=== PATIENT | female | born 1995 | race Hispanic/Latino ===

== ENCOUNTER 2024-11-21 22:20 | Emergency (ER) | payer SELFPAY ==
[~2024-11-21] VITALS: Ht 160 cm; Wt 62.4 kg
--- NOTE | 2024-11-21 22:29 | ERN ---
ED Note History of Present Illness Stated Complaint: N/V/D, ABD PAIN Chief Complaint: Nausea,Vomiting,Diarrhea Time Seen by MD: 22:26 Dictation: PATIENT IS A 29-YEAR-OLD FEMALE HERE WITH COMPLAINTS OF EPIGASTRIC PAIN WITH NAUSEA VOMITING ONSET WAS YESTERDAY. SHE STATES HER LAST FOOD INTAKE WAS YESTERDAY SHE STATES THIS THIS AFTERNOON SHE GOT UP AND TRIED TO EAT AT 17:30, SHE THREW UP. NO FEVER NO CHILLS NO CHEST PAIN NO BACK PAIN. 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 Allergies: Coded Allergies: No Known Drug Allergies (Unverified Allergy, Unknown, 11/21/24) Past Medical History Past Medical History: No Pertinent History Surgical History: Other Surgical History Other: GALLBLADDER "STONES" 2017 History: Not Applicable LMP: Oct 25, 2024 RN Note Reviewed/Agreed w/PFSH: Yes Review of System Dictation CONSTITUTIONAL: NEGATIVE EXCEPT FOR HPI HEAD/FACE: NEGATIVE EXCEPT FOR HPI EENT: NEGATIVE EXCEPT FOR HPI RESPIRATORY: NEGATIVE EXCEPT FOR HPI GASTROINTESTINAL/ABDOMINAL: NEGATIVE EXCEPT FOR HPI EPIGASTRIC PAIN WITH NAUSEA VOMITING GENITOURINARY: NEGATIVE EXCEPT FOR HPI MUSCULOSKELETAL: NEGATIVE EXCEPT FOR HPI INTEGUMENTARY: NEGATIVE EXCEPT FOR HPI NEUROLOGICAL/PSYCH: NEGATIVE EXCEPT FOR HPI HEMATOLOGIC/LYMPHATIC: NEGATIVE EXCEPT FOR HPI ALL SYSTEMS NEGATIVE, EXCEPT NOTED ABOVE. 13 POINT REVIEW OF SYSTEMS ASSESSED AND ALL NEGATIVE EXCEPT FOR ABOVE. Initial Vital Sign VS Vital Signs Date Time Temp Pulse Resp B/P (MAP) Pulse Ox O2 Delivery O2 Flow Rate FiO2 11/21/24 22:21 99.3 121 20 127/79 100 Room Air 0 11/21/24 23:45 21 Physical Exam Dictation VITAL SIGNS REVIEWED GENERAL APPEARANCE: ALERT, ORIENTED X 3, MILD ACUTE DISTRESS, WELL DEVELOPED, NOURISHED. PATIENT STATES NO PAIN UNTIL I FEEL LIKE AND WENT TO VOMIT. HEAD AND FACE: NON-TRAUMATIC. EYES: PERRL, PINK CONJUNCTIVAS, EYELID NO TRAUMA, ANTERIOR CHAMBER WITH ARCUS SENILIS. EARS: PINNAS INTACT AND NO SIGNS OF TRAUMA OR ERYTHEMA EAR CANALS CLEAR AND NO DISCHARGE TM NO ERYTHEMA NOSE: NO DISCHARGE, NO BLEEDING. OROPHARYNX: MOUTH NORMAL, TONGUE PINK, PHARYNX CLEAR,NO ERYTHEMA, TONSILS NO EXUDATES, NO ABSCESSES NOTED, MUCOUS MEMBRANE MOIST NECK: SUPPLE, NON-TENDER, NO THYROMEGALY, NO MASSES, NO JVD, NO BRUITS BREAST:DEFERRED CHEST:NO TENDERNESS, NO CREPITUS, NO PARADOXICAL MOVEMENT, NO RETRACTIONS LUNGS:CLEAR, WELL-VENTILATED, SYMMETRIC, NO RALES, NO WHEEZING, NO RHONCHI, NO STRIDOR, GOOD BREATH SOUNDS BILATERALLY HEART: REGULAR RATE, REGULAR RHYTHM, NO MURMUR, NO GALLOPS VASCULAR: NO PERIPHERAL EDEMA, ABDOMEN: SOFT, POSITIVE BOWEL SOUNDS, NONDISTENDED, NO GUARDING, MILD EPIGASTRIC TENDERNESS WITH PALPATION, NO REBOUND, NO MASSES NO HEPATOMEGALY, NO SPLENOMEGALY, NO BARRAGAN'S SIGN, NO HERNIAS. RECTAL: DEFERRED GENITAL: DEFERRED NEUROLOGICAL: NORMAL SPEECH, MOTOR FUNCTION INTACT, SENSORY FUNCTION INTACT MUSCULOSKELETAL: NECK NONTENDER, FULL RANGE OF MOTION, BACK NONTENDER, FULL RANGE OF MOTION, EXTREMITIES: NONTENDER, FULL RANGE OF MOTION SKIN: COLOR PINK, DRY, NO TURGOR, NO RASH, NO LACERATIONS, NO ABRASIONS, NO CONTUSIONS. LYMPHATIC: DEFERRED Results (Laboratory/Radiology) Laboratory/Radiology Laboratory Tests Test 11/21/24 23:00 11/21/24 23:25 11/22/24 01:54 White Blood Count 16.5 K/uL (4.8-10.8) H Red Blood Count 4.78 MIL/uL (4.00-5.50) Hemoglobin 14.9 g/dL (12.0-16.0) Hematocrit 44.0 % (36-48) Mean Corpuscular Volume 92.1 fL (79-99) Mean Corpuscular Hemoglobin 31.2 pg (27.0-33.0) Mean Corpuscular Hemoglobin Concent 33.9 g/dL (32.0-36.0) Red Cell Distribution Width 13.0 % (11.0-15.5) Platelet Count 336 K/uL (130-400) Mean Platelet Volume 10.8 fL (7.5-10.5) H Immature Granulocyte % (Auto) 0.3 % (0-1) Neutrophils (%) (Auto) 86.5 % (40.0-77.0) H Lymphocytes (%) (Auto) 7.9 % (21.0-51.0) L Monocytes (%) (Auto) 3.9 % (3.0-13.0) Eosinophils (%) (Auto) 1.1 % (0.0-8.0) Basophils (%) (Auto) 0.3 % (0.0-5.0) Neutrophils # (Auto) 14.3 K/uL (1.8-7.7) H Lymphocytes # (Auto) 1.3 K/uL (1.0-4.8) Monocytes # (Auto) 0.6 K/uL (0.1-1.0) Eosinophils # (Auto) 0.18 K/uL (0.00-0.70) Basophils # (Auto) 0.05 K/uL (0.00-0.20) Absolute Immature Granulocyte (auto 0.05 K/uL (0-1) Nucleated Red Blood Cells 0.0 % (0.0-0.19) White Cell Morphology Comment See comments Sodium Level 142 mmol/L (136-145) Potassium Level 4.0 mmol/L (3.5-5.1) Chloride Level 102 mmol/L (101-111) Carbon Dioxide Level 26 mmol/L (21-32) Blood Urea Nitrogen 16 mg/dL (7-18) Creatinine 0.8 mg/dL (0.5-1.0) Glomerular Filtration Rate Calc 101 mL/min (>90) Random Glucose 116 mg/dL (70-105) H Total Calcium 9.0 mg/dL (8.5-10.1) Lipase 35 U/L (16-77) Serum Test, Qualitative NEGATIVE (NEGATIVE) Lactic Acid Level 1.8 mmol/L (0.8-2.5) Urine Color YELLOW (YELLOW) Urine Appearance CLOUDY (CLEAR) H Urine pH 5.5 (5.0-8.0) Urine Specific Maysel 1.030 (1.001-1.031) Urine Protein 10 mg/dL (NEGATIVE) H Urine Glucose (UA) NEGATIVE mg/dL (NEGATIVE) Urine Ketones >=80 mg/dL (NEGATIVE) Urine Occult Blood NEGATIVE (NEGATIVE) Urine Nitrate NEGATIVE (NEGATIVE) Urine Bilirubin NEGATIVE mg/dL (NEGATIVE) Urine Urobilinogen 0.2 mg/dL (0.2-1.0) Urine Leukocyte Esterase 250 Claudio/uL (NEGATIVE) H Urine RBC 2-5 /HPF (0-1) H Urine WBC 11-25 /HPF (0-1) H Urine Squamous Epithelial Cells FEW /HPF (0-2) Urine Bacteria RARE /HPF (None Seen) Labs Reviewed?: Yes ED Course ED Course Orders Procedure Category Date Status Time Cbc With Differential LAB 11/21/24 Complete 22:26 Lipase LAB 11/21/24 Complete 22:26 Basic Metabolic Panel LAB 11/21/24 Complete 22:26 Ondansetron Odt 4mg PHA 11/21/24 Complete Tab (Zofran 4mg Odt) 22:30 Blood Cult KARLEE 11/21/24 In Process 23:18 Lactic Acid LAB 11/21/24 Complete 23:18 0.9%Nacl 1000ml (Ns PHA 11/21/24 Complete 1000ml) 23:30 Ondansetron 4mg Inj PHA 11/21/24 Complete (Zofran 4mg Inj) 23:30 Famotidine 20mg Vial PHA 11/21/24 Complete (Pepcid 20mg Vial) 23:30 Testing, LAB 11/21/24 Complete Serum Hcg 23:22 Ct Abdomen/Pelvis CT 11/21/24 Resulted W/Contrast 23:22 Morphine 4mg Syg PHA 11/21/24 Complete (Morphine 4mg Syg) 23:45 Urinalysis Profile LAB 11/22/24 Complete 00:08 Iohexol (Omnipaque) PHA 11/22/24 Complete 01:12 Culture Urine KARLEE 11/22/24 In Process 02:12 Current Medications Medications (Trade) Dose Ordered Sig/Lida Route PRN Reason Start Time Stop Time Status Last Admin Dose Admin Famotidine (Pepcid 20mg Vial) 20 mg ONCE ONCE IV 11/21/24 23:30 11/21/24 23:31 DC 11/22/24 00:08 Iohexol (Omnipaque) 75 ml STK-MED ONCE IV 11/22/24 01:12 11/22/24 01:12 DC Morphine Sulfate (morPHINE 4MG SYG) 2 mg ONCE ONCE IVP 11/21/24 23:45 11/21/24 23:46 DC 11/22/24 00:15 Ondansetron HCl (zoFRAN 4MG INJ) 4 mg ONCE ONCE IVP 11/21/24 23:30 11/21/24 23:31 DC 11/22/24 00:08 Ondansetron HCl (zoFRAN 4MG ODT) 4 mg ONCE ONCE SL 11/21/24 22:30 11/21/24 23:20 DC Sodium Chloride 1,000 ml @ 0 mls/hr ONCE ONCE IV 11/21/24 23:30 11/21/24 23:31 DC 11/22/24 00:08 Vital Signs Date Time Temp Pulse Resp B/P (MAP) Pulse Ox O2 Delivery O2 Flow Rate FiO2 11/21/24 23:45 99.3 121 23 127/79 100 Room Air* 0 21 11/21/24 22:21 99.3 121 20 127/79 100 Room Air 0 Medical Decision Making MDM Patient's CT scan is consistent with gastroenteritis. Radiologist also noted possibly collapsing right ovarian cyst. Patient can follow-up with her cafeteria operator about that. In either case patient does not have an acute abdomen that requires surgery. The appendix was not inflamed and there were no abscesses. DX & DISP Disposition: Discharge Departure Impression: Primary Impression: Gastroenteritis Condition: Stable Scripts Ondansetron (Ondansetron Odt) 4 Mg Tab.rapdis 1 TAB PO Q6HPRN PRN for nausea/vomiting for 4 Days, #16 TAB 0 Refills Prov: ABBI SWEENEY MD 11/22/24 Additional Instructions: Your nausea and vomiting was most likely due to gastroenteritis, a stomach bug. You do not have appendicitis you do not have a condition that require surgery. Drink plenty of fluids when you get home Pedialyte has a good fluid to drink in the circumstances. Drink to stay hydrated even while you have nausea. If you can not keep fluids down and become dehydrated please return to the emergency room. I have sent a prescription to a pharmacy for an anti nausea medication. You do not have to pick up worker the prescription if you do not feel that you need it. Try to drink enough fluids so that your urine runs clear at least once a day. Referrals: SELF,REFERRAL (PCP) ISAMAR GREENBERG Nov 21, 2024 22:29 ABBI SWEENEY MD Nov 22, 2024 04:05
[2024-11-21 23:14] LABS: IMMATURE GRANULOCYTE ABSOLUTE 0.05 K/uL (0-1); NUCLEATED RED BLOOD CELLS 0.0 % (0.0-0.19); PLATELET COUNT (AUTO) 336 K/uL (130-400); RED BLOOD CELL COUNT(AUTO) 4.78 MIL/uL (4.00-5.50); RED CELL DISTRIBUTION WIDTH 13.0 % (11.0-15.5); WHITE BLOOD COUNT (AUTO) 16.5 K/uL (4.8-10.8)
[2024-11-21] MEDS ORDERED: IOHEXOL-350 75 ML VIAL IV ONE (23:22)
[2024-11-21 23:28] LABS: CREATININE 0.8 mg/dL (0.5-1.0); GLOMERULAR FILTR. RATE CALC 101.0 mL/min (>90); GLUCOSE,RANDOM 116.0 mg/dL (70-105); SODIUM SERUM 142.0 mmol/L (136-145); UREA NITROGEN, BLOOD 16.0 mg/dL (7-18)
[2024-11-22] MEDS: FAMOTIDINE 20MG VIAL IV ONE (00:08)
[2024-11-22] MEDS: 0.9%NACL 1000ML 1,000 ML IV ONE (00:08)
--- NOTE | 2024-11-22 00:53 | NUR ---
PATIENT EDUCATED ON CT CONTRAST DYE AND ASSOCIATED RISK, AND PATIENT VERBALIZED UNDERSTANDING AND CONSENT TO USE CT CONTRAST. CONSENT FORM SIGNED BY PATIENT AND PLACED IN CHART.
[2024-11-22] MEDS ORDERED: IOHEXOL-350 75 ML VIAL IV ONE (01:12)
[2024-11-22 02:06] LABS: APPEARANCE,URINE CLOUDY (CLEAR); GLUCOSE, URINE (UA) NEGATIVE (NEGATIVE); LEUKOCYTE ESTERASE ,URINE 250 Leu/uL (NEGATIVE); NITRATE,URINE NEGATIVE (NEGATIVE); OCCULT BLOOD,URINE NEGATIVE (NEGATIVE)
[2024-11-22 02:11] LABS: ADD UA MICROSCOPIC YES
[2024-11-22 02:15] LABS: SQUAMOUS EPITHELIAL CELL,UR FEW /HPF (0-2)
--- NOTE | 2024-11-22 03:54 | HMCIMG ---
EXAM: CT Abdomen and Pelvis with IV contrast CLINICAL HISTORY: Epigastric and left upper quadrant abdominal pain and tenderness. TECHNIQUE: Postcontrast thin collimated axial CT images of the abdomen and pelvis were obtained with sagittal and coronal reformatted images also submitted. CT scan is done according to ALARA (As Low As Reasonably Achievable). COMPARISON: None. FINDINGS: The included lungs are clear. No focal abnormality within the liver, pancreas, spleen, adrenals, or kidneys. Status post cholecystectomy. The urinary bladder is empty and suboptimally evaluated. 2 cm collapsing cyst with irregular peripheral enhancement in the right ovary. Unremarkable uterus and left ovary. Nondilated fluid-filled small and large bowel loops without any zone of transition; this could be a nonspecific finding, or may be present in the clinical setting of acute enterocolitis. Unremarkable appendix. Grossly unremarkable abdominal vessels. No pathological lymphadenopathy in the abdomen or pelvis. No ascites or pneumoperitoneum. No acute bony abnormality is evident. IMPRESSIONS: Nondilated fluid-filled small and large bowel loops without any zone of transition; this could be a nonspecific finding, or may be present in the clinical setting of acute enterocolitis. 2 cm collapsing cyst with irregular peripheral enhancement in the right ovary, which could be a recently ruptured right ovarian follicle or cyst. Recommend ultrasound of the pelvis for further evaluation. /Polly
[2024-11-22] MEDS ORDERED: ONDA-243 PO (04:05)
[2024-11-22 04:56] VITALS: BP 121/75; PULSE 81; RESP 20; TEMP 98.8; O2SAT 100
== END 2024-11-22 04:57 | disposition home or self-care (01) ==
LOC: EDH 22:20
DX: K52.9 Noninfective gastroenteritis and colitis, unspecified (principal); Z98.890 Other specified postprocedural states
CPT/HCPCS: 99285; 74177; 80048; 84703; 83690; 85025; 87040 ×2; 87086; 83605; 81001; 36415; 96374; 96375; Q9967; J1308; J7030; J2405; J2270